=== PATIENT | female | born 1960 | race African-American/Black ===

== ENCOUNTER 2016-06-10 11:01 | Day surgery (SDC) | payer OTHER ==
[2016-06-09 14:00] VITALS: BMI 31.8
[2016-06-10] VITALS (9 sets, daily range): BP systolic 130–147; BP diastolic 80–94; PULSE 65–80; RESP 13–18; Ht 170.2 cm; Wt 102.0 kg
[~2016-06-10] VITALS: Ht 170.2 cm; Wt 102.0 kg
[~2016-06-10 11:01] MED LIST: ATEN-51 PO; BENA5TAB2 PO; FENTAnyl 50 MCG/ML VIAL ONE; FOLI0.4T2 PO; GLYCOPYRROLATE 0.4 MG INJ ONE; HYDR1TAB10 PO; HYDR200T5 PO; IBUP400T22 PO; LIDOCAINE 2% (SDV) 5 ML INJ ONE; MET25 PO; MIDAZOLAM 1 MG/ML 2 ML INJ ONE; NEOSTIGMINE 3 MG/3 ML SYRINGE ONE; PANT20TA3 PO; PROPOFOL 20 ML ONE; ROCURONIUM 50 MG INJ ONE
[2016-06-10] MEDS ORDERED: ALEN70TA30 PO (11:35)
[2016-06-10] MEDS ORDERED: FOLI-49 PO (11:35)
[2016-06-10] MEDS ORDERED: LORA10TA3 PO (11:35)
[2016-06-10] MEDS ORDERED: OMEP20CA16 PO (11:36)
[2016-06-10] MEDS ORDERED: ATEN50TA PO (11:36)
[2016-06-10] MEDS ORDERED: BENA1TAB12 PO (11:37)
[2016-06-10] MEDS ORDERED: MET25 PO (11:38)
[2016-06-10] MEDS ORDERED: HYDR200T39 PO (11:39)
[2016-06-10] MEDS ORDERED: DEXAMETHASONE 4 MG/ML 1 ML INJ ONE ×2 (12:59→13:39)
[2016-06-10] MEDS ORDERED: POVIDONE IODINE 10% 28.4 GM OINT ONE (12:59)
[2016-06-10] MEDS ORDERED: BUPIVACAINE 0.5% (SDV) 30 ML INJ ONE (12:59)
--- NOTE | 2016-06-10 13:05 | HPN ---
Date/Time of Note Date/Time of Note DATE: 06/10/16 TIME: 13:05 STAS CARTER DPM Jun 10, 2016 13:05
[2016-06-10] MEDS ORDERED: ONDANSETRON 4 MG INJ ONE (13:39)
[2016-06-10] MEDS ORDERED: BUPIVACAINE 0.5% (MPF) 30 ML INJ INJ ONE (14:00)
--- NOTE | 2016-06-10 14:39 | PREOPHP ---
DATE OF ADMISSION: 06/10/2016 HISTORY OF PRESENT ILLNESS: The patient is being admitted to the hospital for elective foot surgery, palliative treatment unsuccessful. The patient has been explained surgery complications, alternatives, and elected to have elective foot surgery. The patient has the second digit on the left foot which is hammertoe and a club toe. ALLERGIES: THE PATIENT STATES SHE IS ALLERGIC TO LIQUID IRON. MEDICATIONS: She states she is takin. Plaquenil. 2. Folic acid. 3. Metrotrexate 4. Motrin. 5. [place]. 6. Banazaphrel The patient states she has no problem with heart, lung, liver, kidney, thyroid, and no history of diabetes. Does not smoke, occasionally alcohol. PHYSICAL EXAMINATION: See any other pertinent history and upper extremity physical exam by Dr. Kearns. Lower extremity physical exam shows a DP and PT equal and regular. Neurological negative for pathology. Dermatologically shows a deformed second toe on the left foot. FINAL DIAGNOSES: 1. Hammertoe, second, left foot. 2. Club toe, second, left foot. Dictated By: STAS DOSHI/VIOLET Conf#: [id number] DID#: [id number] MTDJennifer
[2016-06-10] MEDS ORDERED: DIPHENHYDRAMINE 50 MG INJ IV PRN (15:00)
[2016-06-10] MEDS ORDERED: MIDAZOLAM 1 MG/ML 2 ML INJ IV PRN (15:00)
[2016-06-10] MEDS ORDERED: morphine (1 MG/ML) 10ML SYRINGE IV PRN ×3 (15:00)
[2016-06-10] MEDS ORDERED: HYDROmorphONE (0.2 MG/ML) 10ML SYG IV PRN ×3 (15:00)
[2016-06-10] MEDS ORDERED: ATROPINE 1 MG/10 ML SYRINGE IV PRN (15:00)
[2016-06-10] MEDS ORDERED: hydrALAzine 20 MG INJ IV PRN (15:00)
[2016-06-10] MEDS ORDERED: FENTAnyl 50 MCG/ML VIAL IV PRN ×2 (15:00)
[2016-06-10] MEDS ORDERED: MEPERIDINE 25 MG INJ IV PRN (15:00)
[2016-06-10] MEDS ORDERED: OXYCODONE/ACETAMINOPHEN (5/325) TAB PO PRN ×2 (15:00)
[2016-06-10] MEDS ORDERED: LABETALOL HCL 20MG INJ IV PRN (15:00)
[2016-06-10] MEDS ORDERED: EPHEDrine SULFATE 50 MG/5 ML SYG IV PRN (15:00)
[2016-06-10] MEDS ORDERED: ONDANSETRON 4 MG INJ IV PRN (15:00)
== END 2016-06-10 15:43 | disposition home or self-care (01) ==
LOC: SDS 11:01
PROVIDERS: ATTEND Podiatrist
DX: M20.42 Other hammer toe(s) (acquired), left foot (principal); I10 Essential (primary) hypertension
CPT/HCPCS: 28285; 88304; 88311; J1100; J2250; J2405; J2710; J3010; L3260; Z7512; Z7610

== ENCOUNTER 2016-09-05 06:30 | Observation (INO) | payer OTHER ==
[2016-09-04 11:22] VITALS: BMI 34.5
[2016-09-05] VITALS (25 sets, daily range): BP systolic 93–155; BP diastolic 55–98; PULSE 54–75; RESP 15–26; Ht 170.2 cm; Wt 101.9 kg
[~2016-09-05] VITALS: Ht 170.2 cm; Wt 101.9 kg
[~2016-09-05 06:30] MED LIST changes: +ALEN70TA30 PO; -ATEN-51 PO; +ATEN50TA PO; +BENA1TAB12 PO; -BENA5TAB2 PO; +CEFAZOLIN 2 GM/50 ML (PMX) 50 ML IVPB ONE; -FENTAnyl 50 MCG/ML VIAL ONE; +FOLI-49 PO; -FOLI0.4T2 PO; -GLYCOPYRROLATE 0.4 MG INJ ONE; -HYDR1TAB10 PO; +HYDR200T39 PO; -HYDR200T5 PO; -IBUP400T22 PO; -LIDOCAINE 2% (SDV) 5 ML INJ ONE; +LORA10TA3 PO; -MIDAZOLAM 1 MG/ML 2 ML INJ ONE; -NEOSTIGMINE 3 MG/3 ML SYRINGE ONE; +OMEP20CA16 PO; -PANT20TA3 PO; -PROPOFOL 20 ML ONE; -ROCURONIUM 50 MG INJ ONE; +SOD CHLORIDE 0.9% 1,000 ML IV SCH
[2016-09-05] MEDS ORDERED: FENTAnyl 50 MCG/ML VIAL ONE (06:53)
[2016-09-05] MEDS ORDERED: MIDAZOLAM 1 MG/ML 2 ML INJ ONE (06:53)
[2016-09-05] MEDS ORDERED: ROCURONIUM 50 MG INJ ONE (06:53)
[2016-09-05] MEDS ORDERED: PROPOFOL 20 ML ONE (06:53)
[2016-09-05] MEDS ORDERED: SUCCINYLCHOLINE CHLORIDE 100 MG/5 ML SYG IV ONE (06:53)
[2016-09-05] MEDS ORDERED: NEOSTIGMINE 3 MG/3 ML SYRINGE ONE (06:53)
[2016-09-05] MEDS ORDERED: GLYCOPYRROLATE 0.4 MG INJ ONE (06:53)
[2016-09-05] MEDS ORDERED: LIDOCAINE 2% (SDV) 5 ML INJ ONE (06:53)
[2016-09-05] MEDS ORDERED: ONDANSETRON 4 MG INJ ONE (06:54)
[2016-09-05] MEDS ORDERED: DEXAMETHASONE 4 MG/ML 1 ML INJ ONE (06:54)
[2016-09-05] MEDS ORDERED: ONDANSETRON 4 MG INJ IV PRN ×2 (07:00→20:00)
[2016-09-05] MEDS ORDERED: EPHEDrine SULFATE 50 MG/5 ML SYG IV PRN (07:00)
[2016-09-05] MEDS ORDERED: LABETALOL HCL 20MG INJ IV PRN (07:00)
[2016-09-05] MEDS ORDERED: DIPHENHYDRAMINE 50 MG INJ IV PRN (07:00)
[2016-09-05] MEDS ORDERED: HYDROmorphONE (0.2 MG/ML) 10ML SYG IV PRN ×2 (07:00)
[2016-09-05] MEDS ORDERED: OXYCODONE/ACETAMINOPHEN (5/325) TAB PO PRN ×2 (07:00)
[2016-09-05] MEDS ORDERED: MIDAZOLAM 1 MG/ML 2 ML INJ IV PRN (07:00)
[2016-09-05] MEDS ORDERED: hydrALAzine 20 MG INJ IV PRN ×2 (07:00→11:30)
[2016-09-05] MEDS ORDERED: FENTAnyl 50 MCG/ML VIAL IV PRN (07:00)
[2016-09-05] MEDS ORDERED: ATROPINE 1 MG/10 ML SYRINGE IV PRN (07:00)
[2016-09-05] MEDS ORDERED: MEPERIDINE 25 MG INJ IV PRN (07:00)
[2016-09-05] MEDS ORDERED: morphine (1 MG/ML) 10ML SYRINGE IV PRN ×3 (07:00)
[2016-09-05] MEDS ORDERED: CEFAZOLIN 1 GM INJ ONE (07:02)
[2016-09-05] MEDS ORDERED: BUPIVACAINE 0.25% (MPF) 30 ML INJ ONE (08:04)
[2016-09-05] MEDS ORDERED: POLYMYXIN/BACITRACIN 1L IRRIG ONE (08:04)
[2016-09-05] MEDS ORDERED: POLYMYXIN/BACITRACIN 1L IRRIG IRR ONE (08:10)
[2016-09-05] MEDS ORDERED: BUPIVACAINE 0.25% (STERILE-PAK) 30 ML INJ INJ ONE (08:10)
[2016-09-05] MEDS ORDERED: EPHEDrine SULFATE 50 MG/5 ML SYG ONE (08:55)
[2016-09-05] MEDS ORDERED: hydrALAzine 20 MG INJ ONE (08:59)
--- NOTE | 2016-09-05 09:49 | OPR ---
Date/Time of Note Date/Time of Note DATE: 09/05/16 TIME: 09:48 Operative Report Procedure Date: Sep 05, 2016 Preoperative Diagnosis large incarcerated ventral hernia Postoperative Diagnosis same Operation Performed open incarcerated ventral hernia repair bard soft mesh intraabdominal implantation Surgeon: Nick HOOK G. SEONG Sep 05, 2016 09:49
[2016-09-05] MEDS ORDERED: KETOROLAC 15 MG INJ IV PRN (10:00)
[2016-09-05] MEDS ORDERED: morphine 2 MG INJ IV PRN (10:00)
[2016-09-05] MEDS: FENTAnyl 50 MCG/ML VIAL IV PRN ×3 (10:08→10:34)
[2016-09-05] MEDS: CEFAZOLIN 2 GM/50 ML (PMX) 50 ML IVPB SCH ×2 (10:10→19:04)
--- NOTE | 2016-09-05 10:32 | OPR ---
DATE OF OPERATION: 09/05/2016 INDICATION: This is a 56-year-old female with a very large incarcerated ventral hernia. She reques ts surgical repair. Risks, alternatives, benefits, and personnel were discussed with the patient. The patient expressed understanding and consents to the operation. PREOPERATIVE DIAGNOSIS: Incarcerated ventral hernia. POSTOPERATIVE DIAGNOSIS: Incarcerated ventral hernia. OPERATION PERFORMED: 1. Open incarcerated ventral hernia repair. CPT code 39710. 2. Implantation of mesh. CPT code 73316. SURGEON: Fany Davis MD SPECIMEN: None. COMPLICATIONS: None. ANESTHESIA: General. PROCEDURE: The patient was taken to the OR and prepped and draped in the usual sterile fashion. Sepulveda rgical timeout was performed. IV antibiotics were given. Midline incision is made with a 10 blade. Dissection cautery was carried down to the hernia that is incarcerated with contents. The large h ernia content was scarred in. Cautery was used for careful dissection surrounding the incarcerated contents. This was reduced manually. The fascial edges were freshened on all sides superiorly, inf eriorly and laterally on both sides. Mesh was implanted and placed as an underlay mesh with Bard So ft Mesh with interrupted #1 Prolene in all directions. The primary defect was then closed with a ru nning looped 0 PDS. There was good hemostasis. The surgical site was then irrigated with irrigatio n. The skin was closed with skin mamadou. Local anesthesia was injected. Dry dressings were appli ed. Dictated By: FANY WOLF/VIOLET Conf#: [id number] DID#: [id number]
[2016-09-05 10:37] LABS: ADD SCAN DIFF NO
[2016-09-05 10:40] LABS: BASOPHILS % 0.2 % (0.0-2.0); EOSINOPHILS % 0.4 % (0.0-7.0); HEMATOCRIT 39.4 % (37.0-47.0); HEMOGLOBIN 12.2 g/dl (12.0-16.0); LYMPHOCYTES # 2.3 10^3/ul (0.8-2.9); LYMPHOCYTES % 22.1 % (15.0-51.0); MEAN PLATELET VOLUME 10.5 fl (7.4-10.4); MONOCYTE # 0.2 10^3/ul (0.3-0.9); MONOCYTES % 1.8 % (0.0-11.0); NEUTROPHIL # 7.9 10^3/ul (1.6-7.5); NEUTROPHILS % 75.1 % (39.0-77.0); PLATELET COUNT 202 10^3/UL (140-415); RED BLOOD COUNT 4.69 10^6/ul (4.20-5.40); RED CELL DISTRIBUTION WIDTH 16.3 % (11.5-14.5); WHITE BLOOD COUNT 10.5 10^3/ul (4.8-10.8)
[2016-09-05 11:08] LABS: ALBUMIN 4.1 g/dl (3.3-4.9); ALBUMIN/GLOBULIN RATIO 1.64; BILIRUBIN,INDIRECT 0.2 mg/dl (0-1.1); BILIRUBIN,TOTAL 0.2 mg/dl (0.2-1.3); TOTAL PROTEIN 6.6 g/dl (6.1-8.1)
[2016-09-05 11:15] LABS: CALCIUM 8.2 mg/dl (8.4-10.2); CREATININE 0.55 mg/dl (0.44-1.00); POTASSIUM 3.8 mmol/L (3.5-5.1)
[2016-09-05] MEDS: HYDROmorphONE (0.2 MG/ML) 10ML SYG IV PRN ×2 (11:22→11:35)
--- NOTE | 2016-09-05 11:58 | HP ---
DATE OF ADMISSION: 09/05/2016 HISTORY OF PRESENT ILLNESS: The patient is a 56-year-old female with a past medical history positiv e for hypertension, rheumatoid arthritis and obesity. The patient has a large incarcerated ventral hernia and was seeing Dr. Davis in surgical consultation. The patient was brought to the hospital and underwent open incarcerated ventral hernia repair with implantation of mesh. Postoperatively the pa luke experienced significant pain and the patient will be admitted for further evaluation and manag ement. The patient denies any nausea or vomiting. Denies any fever. PAST SURGICAL HISTORY: Positive for hypertension and rheumatoid arthritis. PAST MEDICAL HISTORY: Positive for hypertension and rheumatoid arthritis. PAST SURGICAL HISTORY: Status post bilateral knee replacements in 2007. The patient is status post right 4th and 5th metatarsophalangeal osteotomies and hammertoe correction of the second metatarsop halangeal joints in 2015. The patient is status post hammertoe correction on the 2nd toe of the lef t foot in June of this year. SOCIAL HISTORY: Patient is currently disabled. The patient denies any tobacco use, denies any alcoh ol use, denies any illicit drug use. FAMILY HISTORY: Noncontributory. ALLERGIES: PATIENT IS ALLERGIC TO FERROUS SULFATE. HOME MEDICATIONS: Include: 1. Methotrexate. 2. Folic acid. 3. Atenolol. 4. Benazepril/hydrochlorothiazide. 5. Omeprazole. REVIEW OF SYSTEMS: A 12-point review of systems is negative unless mentioned in the HPI. PHYSICAL ASSESSMENT: GENERAL: Well-developed, well-nourished, obese female, who currently is awake, alert. VITAL SIGNS: Temperature is 98.2, pulse is 54, blood pressure is 97/66, respiratory rate 19, oxygen saturation 95% on 2 liters nasal cannula. HEENT: Head is atraumatic, normocephalic. Pupils are equal, round, and reactive to light and accom modation. Oral mucosa is pink and moist. NECK: Supple. No cervical lymphadenopathy, no thyromegaly. CHEST: Lungs clear bilaterally. There is no rhonchi, wheezes or rales noted. CARDIOVASCULAR: Normal S1, S2. No murmurs, gallops, clicks or rubs noted. ABDOMEN: Status post surgery. Bowel sounds are hypoactive. EXTREMITIES: No edema, clubbing or cyanosis. Pulses equal bilaterally at 2+. SKIN: There is no rash or petechiae noted. NEUROLOGIC: Patient is awake, alert and oriented. No focal deficits noted. LABORATORY DATA: CBC: White blood cells 10.5, hemoglobin 12.2, hematocrit 39.4, platelets 202. IMAGING: Chest x-ray prior to admission, no cardiopulmonary disease noted. ASSESSMENT AND PLAN: 1. Large incarcerated ventral hernia, status post open incarcerated ventral hernia repair with impl antation of mesh. Going to admit the patient to the medical/surgical floor. Continue postoperative antibiotics. Continue Tebbetts and morphine p.r.n. for pain, Zofran p.r.n. for nausea. Continue IV f luids. 2. Hypertension by history. The patient is currently hypotensive. Continue to monitor blood press ure. Will administer hydralazine p.r.n. for a systolic blood pressure above 170. 3. Rheumatoid arthritis. Will resume the patient's until the patient is able to take p.o. 4. Obesity with a BMI of 35.2. 5. Will continue sequential compression devices for deep venous thrombosis prophylaxis and Protonix for peptic ulcer disease prophylaxis. Further recommendations based on clinical course. Plan of care discussed with Dr. Wayne. Dictated By: LAUREN BIRCH SIGN LANGUAGE TEACHER for DALE WAYNE MD SR/NTS Conf#: [id number] DID#: [id number]
[2016-09-05] MEDS: D5W-0.45 NACL + KCL 20 MEQ 1,000 ML IV SCH ×3 (13:59→23:27)
--- NOTE | 2016-09-05 18:30 | PN ---
Date/Time of Note Date/Time of Note DATE: 09/05/16 TIME: 18:29 Assessment/Plan VTE Prophylaxis VTE Prophylaxis Intervention: SCD's Lines/Catheters IV Catheter Type (from Nrsg): Peripheral IV Assessment/Plan Chief Complaint/Hosp Course s/p open incarcerated ventral hernia repair with mesh and omentoplasty Problems: Assessment/Plan d/c home tomorrow Subjective 24 Hr Interval Summary Free Text/Dictation doing well, some pain still Exam/Review of Systems Vital Signs Vitals Vital Signs Date Time Temp Pulse Resp B/P Pulse Ox O2 Delivery O2 Flow Rate FiO2 09/05/16 11:15 58 16 96 09/05/16 11:10 104/70 09/05/16 11:07 Room Air 09/05/16 10:17 2.0 09/05/16 09:59 98.2 Exam c/d/i Results Result Diagram: 09/05/16 1036 09/05/16 1036 Results 24 hrs Laboratory Tests Test 09/05/16 10:36 White Blood Count 10.5 Red Blood Count 4.69 Hemoglobin 12.2 Hematocrit 39.4 Mean Corpuscular Volume 84.0 Mean Corpuscular Hemoglobin 26.0 L Mean Corpuscular Hemoglobin Concent 31.0 L Red Cell Distribution Width 16.3 H Platelet Count 202 Mean Platelet Volume 10.5 H Neutrophils % 75.1 Lymphocytes % 22.1 Monocytes % 1.8 Eosinophils % 0.4 Basophils % 0.2 Nucleated Red Blood Cells % 0.0 Neutrophils # 7.9 H Lymphocytes # 2.3 Monocytes # 0.2 L Eosinophils # 0.0 Basophils # 0.0 Nucleated Red Blood Cells # 0.0 Sodium Level 141 Potassium Level 3.8 Chloride Level 108 Carbon Dioxide Level 25 Anion Gap 12 Blood Urea Nitrogen 12 Creatinine 0.55 Glucose Level 156 Calcium Level 8.2 L Total Bilirubin 0.2 Direct Bilirubin 0.00 Indirect Bilirubin 0.2 Aspartate Amino Transf (AST/SGOT) 16 Alanine Aminotransferase (ALT/SGPT) 24 Alkaline Phosphatase 59 Total Protein 6.6 Albumin 4.1 Globulin 2.50 Albumin/Globulin Ratio 1.64 Medications Medications Current Medications Sodium Chloride 1,000 ml @ 75 mls/hr [id number] IV Last administered on 09/05/16t 06:30; Admin Dose 75 MLS/HR; Start 09/05/16 at 06:30; Stop 09/05/16 at 19:49 Cefazolin Sodium/ Dextrose (Ancef 2 Gm/50 ml (Pmx)) 50 ml @ 100 mls/hr Q8H IVPB Last administered on 09/05/16 10:10; Admin Dose 100 MLS/HR; Start 09/05/16 at 10:00; Stop 09/06/16 at 09:59 Morphine Sulfate (morphine) 2 mg Q2H PRN IV PAIN LEVEL 6-10 Last administered on 09/05/16 15:00; Admin Dose 2 MG; Start 09/05/16 at 10:00 Acetaminophen/ Hydrocodone Bitart ([place] (5/325)) 1 tab Q6H PRN PO PAIN LEVEL 6 -10; Start 09/05/16 at 10:00 Ketorolac Tromethamine 15 mg 15 mg Q6H PRN IV PAIN; Start 09/05/16 at 10:00; Stop 09/08/16 at 09:59 Potassium Chloride/Dextrose/ Sod Cl (D5-1/2ns + KCl 20 Meq) 1,000 ml @ 100 mls/ hr Q10H IV Last administered on 09/05/16 13:59; Admin Dose 100 MLS/HR; Start at 09:49 Hydralazine HCl (Apresoline) 10 mg Q4H PRN IV SBP>170; Start 09/05/16 at 11:30 Nick HOOK Sep 05, 2016 18:30
[2016-09-05] MEDS: HYDROCODONE/APAP (5/325) TAB PO PRN (19:04)
[2016-09-06] MEDS: CEFAZOLIN 2 GM/50 ML (PMX) 50 ML IVPB SCH (02:24)
[2016-09-06] MEDS: D5W-0.45 NACL + KCL 20 MEQ 1,000 ML IV SCH ×2 (05:49→11:14)
[2016-09-06 05:55] LABS: ADD SCAN DIFF NO
[2016-09-06 06:01] LABS: BASOPHILS % 0.1 % (0.0-2.0); HEMATOCRIT 36.7 % (37.0-47.0); HEMOGLOBIN 11.6 g/dl (12.0-16.0); LYMPHOCYTES # 1.7 10^3/ul (0.8-2.9); LYMPHOCYTES % 18.6 % (15.0-51.0); MEAN CORPUSCULAR HEMOGLOBIN 26.5 pg (29.0-33.0); MEAN CORPUSCULAR HGB CONC 31.6 g/dl (32.0-37.0); MEAN CORPUSCULAR VOLUME 83.8 fl (82.0-101.0); MEAN PLATELET VOLUME 11.8 fl (7.4-10.4); MONOCYTE # 0.7 10^3/ul (0.3-0.9); MONOCYTES % 7.4 % (0.0-11.0); NEUTROPHIL # 6.6 10^3/ul (1.6-7.5); NEUTROPHILS % 73.6 % (39.0-77.0); RED BLOOD COUNT 4.38 10^6/ul (4.20-5.40); RED CELL DISTRIBUTION WIDTH 15.9 % (11.5-14.5); WHITE BLOOD COUNT 8.9 10^3/ul (4.8-10.8)
[2016-09-06 06:09] LABS: ALBUMIN/GLOBULIN RATIO 1.53; BILIRUBIN,INDIRECT 0.6 mg/dl (0-1.1); BILIRUBIN,TOTAL 0.6 mg/dl (0.2-1.3); CALCIUM 8.3 mg/dl (8.4-10.2); CREATININE 0.56 mg/dl (0.44-1.00); POTASSIUM 3.5 mmol/L (3.5-5.1); TOTAL PROTEIN 6.6 g/dl (6.1-8.1)
[2016-09-06 06:26] LABS: PLATELET COUNT 150 10^3/UL (140-415)
[2016-09-06 07:21] VITALS: BP 131/77; RESP 18
[2016-09-06] MEDS: HYDROCODONE/APAP (5/325) TAB PO PRN ×2 (08:25→14:33)
[2016-09-06 09:30] LABS: PLATELET ESTIMATE PLT APPEAR ADEQUATE; PLATELETS CLUMPS OCCASIONAL
[2016-09-06] MEDS ORDERED: SENNA TAB PO SCH (09:30)
--- NOTE | 2016-09-06 12:45 | PN ---
DATE: 09/06/2016 SUBJECTIVE: She states that she was vomiting and had nausea yesterday morning, but now is not nauseous. She has not been able to eat that much. No bowel movement. OBJECTIVE: VITAL SIGNS: Temperature 98.7, heart rate 73, respirations 14,. LABORATORY DATA: WBC 8,900, hemoglobin 11.6, hematocrit 36.7. BUN, creatinine , sodium and potassium are within normal limits. Dressing was inspected. The wound is clean. Abdominal binder was applied. Patient to get out of bed with help, walk around. If she tolerates a diet today, she can be discharged home. Follow up with Dr. Davis in the office. Dictated By: ARPIT PAUL MD PS/NTS Conf#: [id number] DID#: [id number] MTDD
--- NOTE | 2016-09-06 15:09 | PDOCDIS ---
Discharge Instructions CONDITION Patient Condition: Stable HOME CARE INSTRUCTIONS: Diet Instructions: Regular ACTIVITY: Activity Restrictions: Slowly Increase Activity Rest between Activity Avoid heavy lifting Do not operate Machinery Do not operate Power Tool Avoid Heavy Housework Bathing Restrictions: Sponge Bath FOLLOW UP/APPOINTMENTS Appointments Follow with PMD 1 week Follow-up with surgery as recommended Please check with your primary doctor regarding taking methotrexate Call 911 or go to the nearest hospital if the symptoms get worse. Discharge instructions reviewed with the patient, staff. Patient verbalized understanding of discharge instructions Plan discussed with TRINA Story Sep 06, 2016 15:09
[2016-09-06] MEDS ORDERED: HYDR-3498 PO (15:12)
[2016-09-06] MEDS ORDERED: PANT40TA3 PO (15:12)
[2016-09-06] MEDS ORDERED: DOCU-144 PO (15:12)
--- NOTE | 2016-09-06 15:14 | DS ---
Date/Time of Note Date/Time of Note DATE: 09/06/16 TIME: 15:14 Discharge Summary Admission/Discharge Info Admit Date/Time Sep 05, 2016 at 09:50 Discharge Date/Time Final Diagnosis s/p open incarcerated ventral hernia repair with mesh and omentoplasty Patient Condition: Stable Hospital Course This IS a 56-year-old female with a past medical history of hypertension, rheumatoid arthritis and obesity. The patient has a large incarcerated ventral hernia and was seeing Dr. Davis in surgical consultation. The patient underwent open incarcerated ventral hernia repair with implantation of mesh. Postoperatively the patient experienced significant pain and was admitted for further evaluation and management. Constitutional: alert, oriented, well developed. VSS Respiratory: clear to auscultation, normal air movement Cardiovascular: nl pulses, regular rate and rhythm Gastrointestinal: non-tender, soft. DDI Extremities: normal pulses Neurological: nl mental status, nl speech Skin: nl turgor Patient got stable, cleared by surgery and is discharged home after discharge instructions/follow up appointments were reviewed and given to patient. Hari Sawyer/staff/patient . Home Meds Active Scripts Pantoprazole* (Protonix*) 40 Mg Tablet., 40 MG PO DAILY, #30 TAB Prov:TRINA MOODY 09/06/16 Docusate Sodium* (Colace*) 100 Mg Capsule, 100 MG PO DAILY, #30 CAP Prov:TRINA MOODY 09/06/16 Hydrocodone Bit-Acetaminophen (Hydrocodone Bit-APAP) 5-325MG Tablet, 1 TAB PO Q6H Y for PAIN LEVEL 6-10, #20 TAB Prov:TRINA MOODY 09/06/16 Reported Medications Benazepril-Hydrochlorothiazide (Benazepril-Hydrochlorothiazide) 10-12.5 Mg Tablet, 0.5 TAB PO DAILY, #30 TAB 06/10/16 Atenolol* (Atenolol*) 50 Mg Tablet, 50 MG PO DAILY, #30 TAB 06/10/16 Omeprazole* (Omeprazole*) 20 Mg Capsule., 20 MG PO DAILY, #30 CAP 06/10/16 Folic Acid* (Folic Acid*) 1 Mg Tablet, 1 MG PO DAILY, TAB 06/10/16 Primary Care Provider Celina Kearns MD Pending Labs Laboratory Tests Test 09/06/16 05:05 White Blood Count 8.910^3/ul (4.8-10.8) Red Blood Count 4.3810^6/ul (4.20-5.40) Hemoglobin 11.6g/dl (12.0-16.0) Hematocrit 36.7% (37.0-47.0) Mean Corpuscular Volume 83.8fl (82.0-101.0) Mean Corpuscular Hemoglobin 26.5pg (29.0-33.0) Mean Corpuscular Hemoglobin Concent 31.6g/dl (32.0-37.0) Red Cell Distribution Width 15.9% (11.5-14.5) Platelet Count 67359^3/UL (140-415) Mean Platelet Volume 11.8fl (7.4-10.4) Neutrophils % 73.6% (39.0-77.0) Lymphocytes % 18.6% (15.0-51.0) Monocytes % 7.4% (0.0-11.0) Eosinophils % 0.0% (0.0-7.0) Basophils % 0.1% (0.0-2.0) Nucleated Red Blood Cells % 0.0/100WBC (0.0-0.0) Neutrophils # 6.610^3/ul (1.6-7.5) Lymphocytes # 1.710^3/ul (0.8-2.9) Monocytes # 0.710^3/ul (0.3-0.9) Eosinophils # 0.010^3/ul (0.0-0.5) Basophils # 0.010^3/ul (0.0-0.1) Nucleated Red Blood Cells # 0.010^3/ul (0.0-0.0) Platelet Estimate PLT APPEAR ADEQUATE Clumped Platelets OCCASIONAL Sodium Level 139mmol/L (135-144) Potassium Level 3.5mmol/L (3.5-5.1) Chloride Level 106mmol/L (97-110) Carbon Dioxide Level 23mmol/L (21-31) Anion Gap 14 (8-16) Blood Urea Nitrogen 8mg/dl (7-20) Creatinine 0.56mg/dl (0.44-1.00) Glucose Level 118mg/dl (70-220) Calcium Level 8.3mg/dl (8.4-10.2) Total Bilirubin 0.6mg/dl (0.2-1.3) Direct Bilirubin 0.00mg/dl (0.00-0.20) Indirect Bilirubin 0.6mg/dl (0-1.1) Aspartate Amino Transf (AST/SGOT) 19IU/L (15-46) Alanine Aminotransferase (ALT/SGPT) 24IU/L (13-69) Alkaline Phosphatase 51IU/L (42-121) Total Protein 6.6g/dl (6.1-8.1) Albumin 4.0g/dl (3.3-4.9) Globulin 2.60g/dl (1.3-3.2) Albumin/Globulin Ratio 1.53 TRINA MOODY Sep 06, 2016 15:14
== END 2016-09-06 16:40 | disposition home or self-care (01) ==
LOC: SDS 06:30 → REC 09:50 → SDS 09:50 → MS2 12:45
PROVIDERS: ADMIT Internal Medicine; ATTEND Surgery
DX: K43.6 Other and unspecified ventral hernia with obstruction, without gangrene (principal); I10 Essential (primary) hypertension; M06.9 Rheumatoid arthritis, unspecified; Z96.653 Presence of artificial knee joint, bilateral; Z88.8 Allergy status to other drugs, medicaments and biological substances; E66.9 Obesity, unspecified; Z68.35 Body mass index [BMI] 35.0-35.9, adult
CPT/HCPCS: 49561; 49568; 80053; 85025; 96365; 96375; J0360; J0690; J1100; J1170; J1885; J2175; J2250; J2270; J2405; J2710; J3010; J3480; J7999; Z7500; Z7512; Z7610; G0378

== ENCOUNTER 2018-11-23 07:04 | Day surgery (SDC) | payer OTHER ==
[~2018-11-23] VITALS: Ht 170.2 cm; Wt 97.8 kg
[~2018-11-23 07:04] MED LIST changes: -ALEN70TA30 PO; -CEFAZOLIN 2 GM/50 ML (PMX) 50 ML IVPB ONE; +DOCU-144 PO; +HYDR-3601 PO; -HYDR200T39 PO; +HYDR200T5 PO; -LORA10TA3 PO; +METO-448 PO; +PANT40TA3 PO; -SOD CHLORIDE 0.9% 1,000 ML IV SCH
[2018-11-23 07:46] VITALS: Ht 170.2 cm; Wt 97.8 kg
[2018-11-23 11:37] VITALS: BP 123/84; PULSE 65; RESP 17
== END 2018-11-23 12:35 | disposition home or self-care (01) ==
LOC: SDS 07:04
PROVIDERS: ATTEND Podiatrist
DX: M20.41 Other hammer toe(s) (acquired), right foot (principal); I10 Essential (primary) hypertension; M06.9 Rheumatoid arthritis, unspecified
CPT/HCPCS: 28285; J0690; J1100; J2001; J2250; J2405; J3010; Z7512; Z7610; 88304; 88311